=== PATIENT | male | born 2000 | race African-American/Black ===

== ENCOUNTER 2021-12-27 13:59 | Emergency (ER) | payer OTHER ==
[~2021-12-27] VITALS: Ht 190.5 cm; Wt 83.5 kg
== END 2021-12-27 15:20 | disposition home or self-care (01) ==
LOC: ER 13:59 → EMR PED 14:22 → ER 14:22 → EMR PED 15:20
DX: S61.412A Laceration without foreign body of left hand, initial encounter (principal); W31.89XA Contact with other specified machinery, initial encounter; Y93.89 Activity, other specified; Y92.89 Other specified places as the place of occurrence of the external cause